=== PATIENT | female | born 1970 | race Caucasian/White ===

== ENCOUNTER 2021-01-02 19:52 | Emergency (ER) | payer MEDICAID ==
[~2021-01-02] VITALS: Ht 157.5 cm; Wt 73.0 kg
[~2021-01-02 19:52] MED LIST: NO MEDS TO REPORT
[2021-01-02] MEDS ORDERED: TETANUS, DIPHTHERIA, PERTUSSIS VAC/PF 0.5ML (>10YR OLD) IM ONE (20:15)
[2021-01-02] MEDS ORDERED: ACETAMINOPHEN 325MG TABLET PO ONE (20:15)
[2021-01-02] MEDS ORDERED: LIDOCAINE HCL/EPINEPHRINE 1%-EPI 1:100,000 50 ML VIAL INFIL ONE (20:30)
[2021-01-02] MEDS ORDERED: LIDOCAINE HCL/EPINEPHRINE 1%-EPI 1:100,000 20 ML VIAL INFIL NR (20:50)
[2021-01-02 22:07] VITALS: BP 130/70
== END 2021-01-02 22:11 | disposition home or self-care (01) ==
LOC: ER 19:52
DX: S01.81XA Laceration without foreign body of other part of head, initial encounter (principal); Y08.89XA Assault by other specified means, initial encounter; Y93.9 Activity, unspecified; Y92.9 Unspecified place or not applicable
CPT/HCPCS: 12011; 70450; 70486; 90471; 90715; 99284; J3490; Z7610

== ENCOUNTER 2021-01-12 17:40 | Emergency (ER) | payer MEDICAID ==
[~2021-01-12] VITALS: Ht 157.5 cm; Wt 91.0 kg
[2021-01-12 17:55] VITALS: BP 127/80
== END 2021-01-12 19:01 | disposition home or self-care (01) ==
LOC: ER 17:40
DX: S01.81XD Laceration without foreign body of other part of head, subsequent encounter (principal); Z48.02 Encounter for removal of sutures; X58.XXXD Exposure to other specified factors, subsequent encounter
CPT/HCPCS: 99281